=== PATIENT | female | born 1990 | race African-American/Black ===

== ENCOUNTER 2021-04-23 07:25 | Emergency (ER) | payer MEDICAID ==
[~2021-04-23] VITALS: Ht 171.4 cm; Wt 118.2 kg
[2021-04-23 07:30] VITALS: BP 133/91
== END 2021-04-23 11:47 | disposition home or self-care (01) ==
LOC: EMS 07:25
DX: S29.011A Strain of muscle and tendon of front wall of thorax, initial encounter (principal); X58.XXXA Exposure to other specified factors, initial encounter; Y93.89 Activity, other specified; Y92.89 Other specified places as the place of occurrence of the external cause; Y99.8 Other external cause status
CPT/HCPCS: 71101; 99283